=== PATIENT | female | born 1960 | race Caucasian/White ===

== ENCOUNTER 2017-03-22 11:48 | Emergency (ER) | payer OTHER ==
[~2017-03-22] VITALS: Ht 167.6 cm; Wt 56.7 kg
[2017-03-22 11:48] VITALS: BP 112/67
== END 2017-03-22 13:12 | disposition home or self-care (01) ==
LOC: ER 11:50
DX: S19.89XA Other specified injuries of other specified part of neck, initial encounter (principal); H81.10 Benign paroxysmal vertigo, unspecified ear; V49.49XA Driver injured in collision with other motor vehicles in traffic accident, initial encounter; Y93.89 Activity, other specified; Y92.413 State road as the place of occurrence of the external cause; Y99.8 Other external cause status
CPT/HCPCS: 99282; A4606; Z7610